=== PATIENT | female | born 1955 | race Hispanic/Latino ===

== ENCOUNTER 2017-09-15 23:52 | Emergency (ER) | payer OTHER, MEDICARE ==
[~2017-09-15] VITALS: Ht 152.4 cm; Wt 88.9 kg
--- OUTSIDE RECORDS SUMMARY | 2017-09-15 23:54 | XMS REPORT ---
Author Author [facility] Address Unknown Phone Unavailable Care Team Providers Care Television Anchor Name Role Phone PRAFUL MORAN Unavailable Unavailable Problems This patient has no known problems. Allergies, Adverse Reactions, Alerts This patient has no known allergies or adverse reactions. Medications This patient has no known medications. Results Test Description Test Time Test Comments Text Results Atomic Results Result Comments MRI RIGHT KNEE WO [facility] [address] [id number] Patient Name: MARCO MIRELES MR #: [id number] : 1955 Age/Sex: 61/F Req #: [id number] Adm Physician: Ordered by: PRAFUL MORAN MD Report #: [id number] Location: MRI Room/Bed: Procedure: [id number] MRI/MRI RIGHT KNEE WO Exam Date: Exam Time: REPORT STATUS: Signed Right knee MRI without contrast. History: Knee pain. Arthritis. Decreased range of motion. Pain not responding to conservative management. Comparison: None. Technique: Multiplanar multi-sequence MRI of the knee without contrast. Findings: Medial compartment: There is mid substance degeneration and free edge fraying of the medial meniscus without tear. The medial compartmental articular cartilage surfaces are slightly thin. There are small peripheral marginal osteophytes. The medial collateral ligament complex is intact.. Lateral compartment: There is mid substance degeneration and free edge fraying of the lateral meniscus. No meniscus tear is seen. The lateral compartmental articular cartilage surfaces are slightly thin. There are small peripheral marginal osteophytes. The lateral collateral ligament complex is intact. Intercondylar notch: The ACL and PCL are intact. Patellofemoral compartment: There are regions of full-thickness articular cartilage loss in the patellofemoral compartment with underlying bone marrow edema. This is most pronounced at the lateral patellar facet best seen on series 2 image 12. Extensor mechanism: The quadriceps and patellar tendons are normal. Other findings: There is a joint effusion and synovitis. There is no acute fracture, subluxation or avascular necrosis. IMPRESSION: Regions of full-thickness articular cartilage loss in the patellofemoral compartment with underlying bone marrow edema. 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 No meniscal tear, collateral ligament tear or cruciate ligament tear. Signed by: Dr. Bryson Medrano M.D. on 02/10/2017 8:26 AM Dictated By: BRYSON MEDRANO MD, MD 5 Transcribed By: SHEYLA on 10/22 COPY TO: PRAFUL MORAN MD
--- OUTSIDE RECORDS SUMMARY | 2017-09-15 23:54 | XMS REPORT | Clinical Summary ---
Author Author [facility] Address Unknown Phone Unavailable Care Team Providers Care French Edge Operator Name Role Phone Ryland Moralez MD PCP Allergies No Known Allergies Current Medications Not on file Active Problems Not on file Social History Tobacco Use Types Packs/Day Years Used Date Never Smoker Alcohol Use Drinks/Week oz/Week Comments No Sex Assigned at Date Recorded Not on file Last Filed Vital Signs Not on file Plan of Treatment Health Maintenance Due Date Last Done Comments PAP SMEAR 1977 COLONOSCOPY 2006 MAMMOGRAM 2006 SHINGRIX VACCINE (#1) 2006 ZOSTER VACCINE 2016 INFLUENZA VACCINE 12/06/2017 Results Not on fileafter 09/14/2016 Insurance Payer Benefit Subscriber ID Type Phone Address Plan / Group [employer] C[employer] xxxxxxxx [facility]
[2017-09-16] MEDS ORDERED: VICTOZA 2-0.6 MG/0.1 SQ (00:54)
[2017-09-16] MEDS ORDERED: LOSARTAN POTASS25 MG PO (00:54)
[2017-09-16] MEDS ORDERED: OMEGA-31000 MG (00:54)
[2017-09-16] MEDS ORDERED: METFORMIN HCL500 MG PO (00:54)
== END 2017-09-16 00:35 | disposition home or self-care (01) ==
LOC: FSED 23:52
DX: R05 Cough (principal); J20.9 Acute bronchitis, unspecified
CPT/HCPCS: 99282

== ENCOUNTER 2019-04-10 15:16 | Emergency (ER) | payer MEDICARE, OTHER ==
[~2019-04-10] VITALS: Ht 152.4 cm; Wt 89.8 kg
[~2019-04-10 15:16] MED LIST: LOSARTAN POTASS25 MG PO; METFORMIN HCL500 MG PO; OMEGA-31000 MG; VICTOZA 2-0.6 MG/0.1 SQ
--- OUTSIDE RECORDS SUMMARY | 2019-04-10 15:18 | XMS REPORT ---
[facility] Address Unknown Phone Unavailable Care Team Providers Care Mail Handler Name Role Phone PRAFUL MORAN Unavailable Unavailable Payers Payer Name Policy Type Policy Number Effective Date Expiration Date Problems This patient has no known problems. Allergies, Adverse Reactions, Alerts Allergy Name Allergy Type Status Severity Reaction(s) Onset Date Inactive Date Treating Clinician Comments simvastatin DA Active SV 2018-07-06 00:00:00 enalapril DA Active U 2018-07-06 00:00:00 diltiazem DA Active SV 2018-07-06 00:00:00 latex DA Active U 2018-07-06 00:00:00 simvastatin DA Active SV 2017-02-20 00:00:00 enalapril DA Active U 2017-02-20 00:00:00 diltiazem DA Active SV 2017-02-20 00:00:00 latex DA Active U 2017-02-20 00:00:00 Medications This patient has no known medications. Results Test Description Test Time Test Comments Text Results Atomic Results Result Comments - XR KNEE 3 V LT 2018-07-06 03:58:00 FAX: Praful Trinidad MD [phone] [place]: B St: [facility] FAX: Chris Carr [phone] Name: MARCO MIRELES [facility] : 1955 Age/S: 62/F [address] [facility] Unit #: [id number] Loc: [place] [address] Phys: Chris Carr NP Acct: [id number] Dis Date: Status: REG ER PHONE #: [phone] Exam Date: 07/06/2018 0340 FAX #: [phone] Reason: PAIN EXAMS: CPT CODE: [id number] XR KNEE 3 [place] [id number] HISTORY: Pain Location: C3 FINDINGS: 3 images of left knee are provided. Tricompartmental osteophytes are present. No acute fracture, dislocation, or other acute osseous abnormality is demonstrated. IMPRESSION: 1. Degenerative changes with tricompartmental osteophytes. No acute fracture or other acute osseous abnormality. at 0358 Reported and signed by: Will Swenson MD CC: Praful Moran MD; Chris Carr NP Technologist: Agustina Rosenberg Trnscrd Date/Time/By: 07/06/2018 (0358) : By: [email or web address] Orig Print D/T: S: 07/06/2018 (0401) PAGE 1 Signed Report COMPREHENSIVE METABOLIC PANEL 2018-07-06 03:50:00 SODIUM (test code=NA) 139 mmol/L 136-145 POTASSIUM (test code=K) 3.7 mmol/L 3.5-5.1 CHLORIDE (test code=CL) 105.0 mmol/L 98-107 CARBON DIOXIDE (test code=CO2) 29.0 mmol/L 21-32 ANION GAP (test code=GAP) 8.7 10-20 GLUCOSE (test code=GLU) 156 mg/dL 74-106 BLOOD UREA NITROGEN (test code=BUN) 15 mg/dL 7-18 GLOMERULAR FILTRATION RATE (test code=GFR) > 60 mL/min >=60 Estimated GFR by using Modified MDRD formula.Chronic kidney disease is defined as either kidney damageor GFR <60 mL/min/1.73 m2 for >3 months. CREATININE (test code=CREAT) 0.60 mg/dL 0.55-1.02 Note change in reference range due to change in reagent. BUN/CREATININE RATIO (test code=BUN/CREA) 26.3 10-20 TOTAL PROTEIN (test code=PROT) 8.3 gram/dL 6.4-8.2 ALBUMIN (test code=ALB) 3.4 g/dL 3.4-5.0 GLOBULIN (test code=GLOB) 4.9 gram/dL 2.7-4.2 ALBUMIN/GLOBULIN RATIO (test code=A/G) 0.7 0.75-1.50 CALCIUM (test code=CA) 8.6 mg/dL 8.5-10.1 BILIRUBIN TOTAL (test code=BILT) 0.30 mg/dL 0.0-1.0 SGOT/AST (test code=AST) 23 IUnit/L 15-37 SGPT/ALT (test code=ALT) 35 IUnit/L 12-78 ALKALINE PHOSPHATASE TOTAL (test code=ALKP) 168 IUnit/L 45-117 Note change in reference range due to change in reagent. COMPREHENSIVE METABOLIC [id number] 03:37:00* Test Item Value Reference Range Comments SODIUM (test code=NA) 139 mmol/L 136-145 POTASSIUM (test code=K) 3.7 mmol/L 3.5-5.1 CHLORIDE (test code=CL) 105.0 mmol/L 98-107 CARBON DIOXIDE (test code=CO2) mmol/L 21-32 ANION GAP (test code=GAP) 10-20 GLUCOSE (test code=GLU) mg/dL 74-106 BLOOD UREA NITROGEN (test code=BUN) mg/dL 7-18 GLOMERULAR FILTRATION RATE (test code=GFR) mL/min >=60 CREATININE (test code=CREAT) mg/dL 0.55-1.02 BUN/CREATININE RATIO (test code=BUN/CREA) 10-20 TOTAL PROTEIN (test code=PROT) gram/dL 6.4-8.2 ALBUMIN (test code=ALB) g/dL 3.4-5.0 GLOBULIN (test code=GLOB) gram/dL 2.7-4.2 ALBUMIN/GLOBULIN RATIO (test code=A/G) 0.75-1.50 CALCIUM (test code=CA) mg/dL 8.5-10.1 BILIRUBIN TOTAL (test code=BILT) mg/dL 0.0-1.0 SGOT/AST (test code=AST) IUnit/L 15-37 SGPT/ALT (test code=ALT) IUnit/L 12-78 ALKALINE PHOSPHATASE TOTAL (test code=ALKP) IUnit/L 45-117 CBC W/AUTO [id number] 03:20:00* Test Item Value Reference Range Comments WHITE BLOOD CELL (test code=WBC) 8.4 K/mm3 4.5-12.5 RED BLOOD CELL (test code=RBC) 4.03 mill/mm3 3.7-5.2 HEMOGLOBIN (test code=HGB) 12.3 gram/dL 11.5-15.5 HEMATOCRIT (test code=HCT) 37.6 % 36.0-46.0 MEAN CELL VOLUME (test code=MCV) 93.3 fL 80-98 MEAN CELL HGB (test code=MCH) 30.5 picogram 27.0-33.0 MEAN CELL HGB CONCETRATION (test code=MCHC) 32.7 gram/dL 33.0-36.0 RED CELL DISTRIBUTION WIDTH (test code=RDW) 12.2 % 11.6-16.2 RED CELL DISTRIBUTION WIDTH SD (test code=RDW-SD) 41.8 fL 37.0-51.0 PLATELET COUNT (test code=PLT) 206 K/mm3 150-450 MEAN PLATELET VOLUME (test code=MPV) 11.1 fL 6.7-11.0 NEUTROPHIL % (test code=NT%) 53.0 % 39.0-69.0 IMMATURE GRANULOCYTE % (test code=IG%) 0.2 % 0.0-5.0 LYMPHOCYTE % (test code=LY%) 36.6 % 25.0-55.0 MONOCYTE % (test code=MO%) 7.7 % 0.0-10.0 EOSINOPHIL % (test code=EO%) 1.9 % 0.0-5.0 BASOPHIL % (test code=BA%) 0.6 % 0.0-1.0 NUCLEATED RBC % (test code=NRBC%) 0.0 % 0-0 NEUTROPHIL # (test code=NT#) 4.44 K/mm3 1.8-7.7 IMMATURE GRANULOCYTE # (test code=IG#) 0.02 x10 3/uL 0-0.03 LYMPHOCYTE # (test code=LY#) 3.07 K/mm3 1.0-5.0 MONOCYTE # (test code=MO#) 0.65 K/mm3 0-0.8 EOSINOPHIL # (test code=EO#) 0.16 K/mm3 0.0-0.5 BASOPHIL # (test code=BA#) 0.05 K/mm3 0.0-0.2 NUCLEATED RBC # (test code=NRBC#) 0.00 K/mm3 0.0-0.1 MANUAL DIFF REQUIRED (test code=MDIFF) NO MRI RIGHT KNEE WO [address] [address] Patient Name: MARCO MIRELES MR #: [id number] : 1955 Age/Sex: 61/F Req #: [id number] Adm Physician: Ordered by: PRAFUL MORAN MD Report #: [id number] Location: MRI Room/Bed: Procedure: [id number] MRI/MRI RIGHT KNEE WO Exam Da te: Exam Time: REPORT STATUS: Signed Right knee MRI without contrast. History: Knee pain. Arthritis. Decreased range of motion. Pain not responding to conservative management. Comparison: No ne. Technique: Multiplanar multi-sequence MRI of the knee without contrast. Findings: Medial compartment: There is mid substance degeneration and free edge fraying of the medial meniscus without tear. The medial compartmen francis articular cartilage surfaces are slightly thin. There are small peripheral marginal osteophytes. The medial collateral ligament complex is intact.. Lateral compartment: There is mid substance degeneration and free edge fraying of the lateral meniscus. No meniscus tear is seen. The lateral compartmental articular cartilage surfaces are slightly thin. There are small peripheral ma rginal osteophytes. The lateral collateral ligament complex is intact. Inte rcondylar notch: The ACL and PCL are intact. Patellofemoral compartment: T here are regions of full-thickness articular cartilage loss in the patellofemo ral compartment with underlying bone marrow edema. This is most pronounced at the lateral patellar facet best seen on series 2 image 12. Extensor mecha nism: The quadriceps and patellar tendons are normal. Other findings: T here is a joint effusion and synovitis. There is no acute fracture, subluxati on or avascular necrosis. IMPRESSION: Regions of full-thickness articul ar cartilage loss in the patellofemoral compartment with underlying bone marro w edema. 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 No meniscal tear, collateral ligament tear or cruciate ligament tear. Signed by: Dr. Jayy Medrano M.D. on 02/10/2017 8:26 AM Dictated By: JAYY MEDRANO MD, MD 5 COPY TO: TO MORAN MD
[2019-04-10] MEDS ORDERED: LOSARTAN-HCTZ1 EAC1 PO (15:40)
[2019-04-10] MEDS ORDERED: METOPROLOL SUCC50 MG PO (15:40)
[2019-04-10] MEDS ORDERED: CLONIDINE HCL 0.2 MG TAB PO ONE (15:45)
[2019-04-10] MEDS ORDERED: PIPER-TAZ 3.375 GM 50 ML IV ONE (15:45)
[2019-04-10] MEDS ORDERED: ACETAMINOPHEN 325 MG TAB PO ONE (15:45)
--- NOTE | 2019-04-10 16:03 | NUR ---
[facility] [employer] [facility] SERVICE HERE AND ALL LABS SENT TO MAIN PER
[2019-04-10] MEDS ORDERED: SODIUM CHLORIDE 0.9% 500ML 500 ML IV STA ×2 (16:11→17:53)
[2019-04-10] MEDS ORDERED: ACETAMINOPHEN 325 MG TAB ONE (16:16)
[2019-04-10] MEDS ORDERED: HYDRALAZINE HCL 20 MG/ML VIAL ONE (16:17)
[2019-04-10] MEDS ORDERED: CLONIDINE HCL 0.1 MG TAB ONE (16:17)
[2019-04-10] MEDS ORDERED: PIPER-TAZ 3.375 GM 50 ML ONE (16:17)
[2019-04-10] MEDS ORDERED: LABETALOL HCL 20 ML ONE (16:18)
[2019-04-10] MEDS ORDERED: SODIUM CHLORIDE 0.9% 500ML 500 ML ONE ×2 (16:18→19:07)
[2019-04-10 16:20] LABS: BASOPHILS % 0.4 % (0.0-1.0); EOSINOPHILS # (AUTO) 0.3 (0.0-0.4); EOSINOPHILS % 3.4 % (0.0-6.0); HEMATOCRIT 40.9 % (34.2-44.1); HEMOGLOBIN 13.8 g/dL (12.0-16.0); LYMPHOCYTES # (AUTO) 1.7 (1.0-3.2); LYMPHOCYTES % 21.8 % (18.0-39.1); MEAN CORPUSCULAR HEMOGLOBIN 31.2 pg (28-32); MEAN CORPUSCULAR HGB CONC 33.7 g/dL (31-35); MEAN CORPUSCULAR VOLUME 92.3 fL (81-99); MONOCYTES # (AUTO) 0.5 (0.2-0.8); MONOCYTES % 5.9 % (4.4-11.3); NEUTROPHILS # (AUTO) 5.4 (2.1-6.9); NEUTROPHILS % 68.2 % (38.7-80.0); PLATELET COUNT 185 x10e3/uL (140-360); RED BLOOD COUNT 4.43 x10e6/uL (3.6-5.1); RED CELL DISTRIBUTION WIDTH 12.4 % (11.7-14.4)
[2019-04-10] MEDS ORDERED: LABETALOL HCL 5 MG/ML 20ML VIAL IV STA (16:25)
--- NOTE | 2019-04-10 16:25 | Diagnostic Imaging Report ---
Chest, 2 views, 04/10/2019. History: Cough. Comparison: None available. Findings: The cardiomediastinal silhouette and pulmonary vasculature are within normal limits. Linear opacities are present lung bases. There is no focal consolidation or pleural effusion. Degenerative changes are noted throughout the thoracic spine. There are no acute osseous or soft tissue abnormalities. Impression: Bibasilar subsegmental atelectasis. Signed by: Devin Espinal on 04/10/2019 4:22 PM
[2019-04-10] MEDS ORDERED: HYDRALAZINE HCL 20 MG/ML VIAL IV ONE (16:30)
[2019-04-10 16:31] LABS: INR 0.91; PROTHROMBIN TIME 12.7 seconds (11.9-14.5)
[2019-04-10 16:32] LABS: PARTIAL THROMBOPLASTIN TIME 28.2 seconds (23.8-35.5)
[2019-04-10 16:38] LABS: MAGNESIUM 1.8 MG/DL (1.3-2.1)
[2019-04-10 16:40] LABS: ALANINE AMINOTRANSFERASE 136 IU/L (0-55); ALBUMIN 3.8 g/dL (3.5-5.0); ALBUMIN/GLOBULIN RATIO 0.8 (0.8-2.0); ALKALINE PHOSPHATASE 170 IU/L (40-150); ANION GAP 17.9 mmol/L (8-16); BLOOD UREA NITROGEN 8 mg/dL (7-26); BUN/CREATININE RATIO 9 (6-25); CALCIUM 9.7 mg/dL (8.4-10.2); CARBON DIOXIDE 23 mmol/L (22-29); CHLORIDE 99 mmol/L (98-107); CREATINE KINASE 108 IU/L (29-168); CREATININE, SERUM 0.88 mg/dL (0.57-1.11); EST GLOMERULAR FILTRATION RATE > 60 ML/MIN (60-); POTASSIUM 3.9 mmol/L (3.5-5.1); SODIUM 136 mmol/L (136-145)
[2019-04-10 16:44] LABS: GLUCOSE 446 mg/dL (74-118)
[2019-04-10 16:58] LABS: THYROID STIMULATING HORMONE 1.248 uIU/mL (0.350-4.940)
[2019-04-10 16:59] LABS: STREPTOCOCCUS GRP A ANTIGEN NEGATIVE (NEGATIVE)
[2019-04-10 17:08] LABS: INFLUENZAE A&B ANTIGEN (RAPID) NEGATIVE (NEGATIVE)
[2019-04-10] MEDS ORDERED: SODIUM CHLORIDE 0.9% 1000ML 1,000 ML IV STA ×2 (17:15)
[2019-04-10] MEDS ORDERED: INSULIN REGULAR, HUMAN 100 UNIT/1 ML 3ML VIAL IV ONE (17:15)
[2019-04-10] MEDS ORDERED: SODIUM CHLORIDE 0.9% 1000ML 2,000 ML ONE (17:28)
[2019-04-10] MEDS ORDERED: INSULIN REGULAR, HUMAN 100 UNIT/1 ML 3ML VIAL ONE (17:28)
[2019-04-10] MEDS ORDERED: IBUPROFEN 200 MG TAB ONE (17:59)
--- NOTE | 2019-04-10 17:59 | NUR ---
REPEAT LACTIC BEING DRAWN NOW
[2019-04-10] MEDS ORDERED: IBUPROFEN 400 MG TAB PO ONE (18:00)
[2019-04-10] MEDS ORDERED: IBUPROFEN 200 MG TAB PO ONE (18:00)
[2019-04-10] MEDS ORDERED: IBUPROFEN 200 MG TAB PO SCH (18:00)
--- NOTE | 2019-04-10 18:08 | NUR ---
[facility] 40 MINS
--- NOTE | 2019-04-10 18:47 | NUR ---
REPORT TO [facility]RU [facility] FOR ROOM 914; HOLDING....
== END 2019-04-10 18:45 | disposition short-term general hospital (02) ==
LOC: FSED 15:16
DX: R50.9 Fever, unspecified (principal); A41.9 Sepsis, unspecified organism; J11.1 Influenza due to unidentified influenza virus with other respiratory manifestations; J31.0 Chronic rhinitis
CPT/HCPCS: 36415; 71046; 80053; 82550; 82553; 83518; 83605; 83735; 83880; 84443; 84484; 85025; 85610; 85730; 87040; 87070; 87086; 87400; 99284; J0360; J1817; J2543; J3490; J7030; J7040